=== PATIENT | male | born 1950 | race African-American/Black ===

== ENCOUNTER 2016-10-07 12:33 | Inpatient (IN) | payer BC, MEDICARE ==
[2016-10-07] MEDS ORDERED: TRAMADOL HCL 50 MG TABLET PO PRN (14:43)
[2016-10-07 14:49] LABS: ABSOLUTE LYMPHOCYTES (AUTO) 1.5 10^3/uL (0.5-4.7); ABSOLUTE MONOCYTES (AUTO) 0.9 10^3/uL (0.1-1.4); ABSOLUTE NEUT (AUTO) 15.3 10^3/uL (1.7-8.2); BASOPHILS % (AUTO) 0.1 % (0-2); HEMATOCRIT 43.7 % (37.9-51.0); HEMOGLOBIN 15.1 g/dL (13.5-17.0); HGB HCT DIFFERENCE 1.6; LYMPHOCYTES % (AUTO) 8.3 % (13-45); MEAN CORPUSCULAR HEMOGLOBIN 30.1 pg (27.0-33.4); MEAN CORPUSCULAR HGB CONC 34.6 g/dL (32.0-36.0); MEAN CORPUSCULAR VOLUME 87 fl (80-97); MONOCYTES % (AUTO) 5.3 % (3-13); RED BLOOD COUNT 5.02 10^6/uL (4.35-5.55); RED CELL DISTRIBUTION WIDTH 12.4 % (11.5-14.0); SEGMENTED NEUTROPHILS % (AUTO) 86.3 % (42-78); WHITE BLOOD COUNT 17.7 10^3/uL (4.0-10.5)
[2016-10-07 14:57] LABS: ALANINE AMINOTRANSFERASE 85 U/L (21-72); ALBUMIN 3.5 g/dL (3.5-5.0); ALKALINE PHOSPHATASE 67 U/L (38-126); ANION GAP 14 (5-19); ASPARTATE AMINO TRANSFERASE 55 U/L (17-59); BILIRUBIN,TOTAL 1.2 mg/dL (0.2-1.3); BLOOD UREA NITROGEN 22 mg/dL (7-20); CALCIUM 9.2 mg/dL (8.4-10.2); CARBON DIOXIDE 29 mmol/L (22-30); CHLORIDE 98 mmol/L (98-107); CREATININE RESULT 1.11 mg/dL (0.52-1.25); GLUCOSE 140 mg/dL (75-110); POTASSIUM 4.2 mmol/L (3.6-5.0); SODIUM 140.6 mmol/L (137-145); TOTAL PROTEIN 7.4 g/dL (6.3-8.2)
[2016-10-07] MEDS: NORMAL SALINE 1000 ML 1,000 ML IV PRN (15:00)
[2016-10-07] MEDS ORDERED: LEVOFLOXACIN 750 MG/D5W RTU 750 MG/150 ML RTUPB IV ONE (15:15)
--- NOTE | 2016-10-07 17:56 | PDOC H&P ---
History of Present Illness Admission Date/PCP: 10/07/16 12:33 [facility] Patient complains of: Cold symptoms with cough History of Present Illness: MICHAEL ÁLVAREZ is a 65 year old male presented to my office earlier today with complaint of cold symptoms, cough and loss of 12 lb weight in last 2 weeks. Patient admitted to associated fever, night sweats, nausea, diarrhea, abdominal pain and heartburns. There is associated chest pain with coughing which has been very productive of greenish phlegm. Patient admitted to associated headache and fatigue with poor appetite and oral intake. His initial evaluation in the office revealed hypoxemia on room air with oxygen saturation of 90%. His CBC did revealed associated leukocytosis with left shift and count over 16,000 necessitating recommendation of hospitalization for adequate evaluation and management. He denied any cigarette smoking, alcohol abuse or illicit drug usage. Past Medical History Cardiac Medical History: Reports: Hyperlipidema, Hypertension Pulmonary Medical History: Reports: None Denies: Asthma, Bronchitis, Chronic Obstructive Pulmonary Disease (COPD), Intubation, Pneumonia, Respiratory Failure, Sleep Apnea, Tuberculosis, Other EENT Medical History: Reports: None Denies: Cataracts, Eyes, Ears, Nose, Throat, Other Neurological Medical History: Reports: None Denies: Hemorrhagic CVA, Ischemic CVA, Migraine, Multiple Sclerosis, Seizures , Other Endocrine Medical History: Reports: None Denies: Diabetes Mellitus Type 1, Diabetes Mellitus Type 2, Gestational Diabetes, Hyperthyroidism, Hypothyroidism, Obesity, Other Renal/ Medical History: Denies: None, Chronic Kidney Disease, End Stage Renal Disease, Nephrolithiasis, Other GI Medical History: Denies: None, Cirrhosis, Crohn's Disease, Diverticulitis, Gastroesophageal Reflux Disease, Hepatitis, Hiatal Hernia, Peptic Ulcer Disease, Ulcerative Colitis, Other Musculoskeltal Medical History: Reports: Arthritis - with chronic pain syndrome Skin Medical History: Denies: None, Eczema, Psoriasis, Other Psychiatric Medical History: Denies: None, Alcohol Dependency, Attention Deficit Hyperactivity Disorder, Bipolar Disorder, Dementia, Depression, General Anxiety Disorder, Personality Disorder, Post Traumatic Stress Disorder, Schizoaffective Disorder, Substance Abuse, Tobacco Dependency, Other Traumatic Medical History: Denies: None, Gunshot Wound, Pneumothorax, Stab Wound, Traumatic Brain Injury , Other Hematology: Denies: None, Anemia, Hemophilia, Sickle Cell Disease, Bleeding Tendencies, Heparin Induced Thrombocytopenia, Neutropenia, Other Infectious Medical History: Reports: Other - Gastrointestinal Helicobacter pylori Past Surgical History Past Surgical History: Denies: None, Appendectomy, Cardiac Catheterization, Carotid Endarterectomy, Cholecystectomy, Colostomy, Coronary Artery Bypass Graft, Coronary Stent, Gastric Bypass Surgery, Herniorrhaphy, Hip Replacement, Ileostomy, Internal Defibrillator, Knee Replacement, Orthopedic Surgery, Pacemaker, Renal Transplant , Splenectomy, Thyroidectomy, Tonsillectomy, Valve Replacement, Vascular Surgery , Other Social History Smoking Status: Never Smoker Frequency of Alcohol Use: None Hx Recreational Drug Use: No Drugs: None Hx Prescription Drug Abuse: No Family History Parental Family History Reviewed: Yes Children Family History Reviewed: Yes Sibling(s) Family History Reviewed.: Yes Medication/Allergy Home Medications: Amlodipine Besylate 10 mg PO DAILY 10/07/16 Aspirin [Ecotrin 81 mg EC Tablet] 81 mg PO DAILY 10/07/16 Garlic [Garlic Oil] 1 each PO DAILY 10/07/16 Multivitamin [Multivitamins] 1 cap PO DAILY 10/07/16 Tramadol HCl [Ultram 50 mg Tablet] 50 mg PO TID PRN 10/07/16 Allergies/Adverse Reactions: No Known Allergies Allergy (Unverified 10/07/16 13:17) Review of Systems Constitutional: PRESENT: as per HPI Eyes: ABSENT: visual disturbances Ears: ABSENT: hearing changes Nose, Mouth, and Throat: PRESENT: headache(s). ABSENT: as per HPI, mouth pain, sore throat, vertigo, other Breasts: ABSENT: as per HPI, other Cardiovascular: PRESENT: as per HPI, chest pain - with coughing. ABSENT: dyspnea on exertion, edema, orthropnea, palpitations, other Respiratory: PRESENT: cough, sputum. ABSENT: as per HPI, dyspnea, hemoptysis, other Gastrointestinal: PRESENT: abdominal pain, diarrhea, heartburn. ABSENT: as per HPI, bloating, coffee ground emesis, constipation, dysphagia, hematemesis, hematochezia, melena, nausea, vomiting, other Genitourinary: ABSENT: as per HPI, difficulty urinating, dysuria, hematuria, nocturia, other Musculoskeletal: ABSENT: as per HPI, back pain, deformity, joint swelling, muscle weakness, other Integumentary: ABSENT: as per HPI, diaphoresis, erythema, lesions, pruritus, rash, wounds, other Neurological: PRESENT: weakness - more related to generalized fatigue. ABSENT: as per HPI, abnormal gait, abnormal movements, abnormal speech, confusion, convulsions, dizziness, focal weakness, frequent falls, lack of coordination, memory loss, numbness, paresthesias, restless legs, syncope, tingling, tremor(s) , vertigo, other Psychiatric: ABSENT: as per HPI, anxiety, depression, hallucinations, homidical ideation, suicidal ideation, other Endocrine: ABSENT: as per HPI, cold intolerance, flushing, heat intolerance, menstrual abnormalities, polydipsia, polyphagia, polyuria, other Hematologic/Lymphatic: ABSENT: as per HPI, easy bleeding, easy bruising, lymphadenopathy, other Physical Exam Vital Signs: Temp Pulse Resp BP Pulse Ox 102.0 F H 124 H 16 118/75 94 10/07/16 16:29 10/07/16 16:29 10/07/16 16:29 10/07/16 16:29 10/07/16 16:29 Intake & Output 10/06/16 10/07/16 10/08/16 06:59 06:59 06:59 Weight 85.2 kg Physical Exam: Acutely ill looking General appearance: PRESENT: cooperative, disheveled Head exam: PRESENT: atraumatic, normocephalic Eye exam: PRESENT: conjunctiva pink, EOMI, PERRLA. ABSENT: scleral icterus Ear exam: PRESENT: normal external ear exam Mouth exam: PRESENT: dry mucosa. ABSENT: laceration, moist, neck supple, tongue midline, other Teeth exam: ABSENT: dental caries, dental tenderness, edentulous, poor dentation , other Throat exam: PRESENT: post pharyngeal erythema. ABSENT: tonsillar erythema, tonsillar exudate, tonsillogmegaly, other Neck exam: PRESENT: full ROM. ABSENT: carotid bruit, JVD, lymphadenopathy, thyromegaly Respiratory exam: PRESENT: crackles - bibasilar region, decreased breath sounds - lung bases. ABSENT: accessory muscle use, chest wall tenderness, clear to auscultation serenity, prolonged expiratory phas, rales, retraction, rhonchi, stridor , symmetrical, tachypnea, unlabored, wheezes, other Cardiovascular exam: PRESENT: tachycardia. ABSENT: bradycardia, clicks, diastolic murmur, gallop, irregular rhythm, RRR, rubs, +S1, +S2, systolic murmur , other Pulses: PRESENT: normal dorsalis pedis pul, +2 pedal pulses bilateral Vascular exam: PRESENT: normal capillary refill GI/Abdominal exam: PRESENT: normal bowel sounds, soft. ABSENT: distended, guarding, mass, organolmegaly, rebound, tenderness Extremities exam: PRESENT: full ROM Musculoskeletal exam: PRESENT: ambulatory, deformity - due to arthritic changes , full ROM, normal inspection Neurological exam: PRESENT: alert, awake, oriented to person, oriented to place , oriented to time, oriented to situation, CN II-XII grossly intact. ABSENT: motor sensory deficit Psychiatric exam: PRESENT: appropriate affect, normal mood. ABSENT: homicidal ideation, suicidal ideation Skin exam: PRESENT: dry, intact, warm. ABSENT: cyanosis, rash Results Laboratory Results: 10/07/16 14:28 10/07/16 14:28 10/07/16 10/07/16 14:28 14:28 WBC 17.7 H RBC 5.02 Hgb 15.1 Hct 43.7 MCV 87 MCH 30.1 MCHC 34.6 RDW 12.4 Plt Count 175 Seg Neutrophils % 86.3 H Lymphocytes % 8.3 L Monocytes % 5.3 Eosinophils % 0.0 Basophils % 0.1 Absolute Neutrophils 15.3 H Absolute Lymphocytes 1.5 Absolute Monocytes 0.9 Absolute Eosinophils 0.0 Absolute Basophils 0.0 Sodium 140.6 Potassium 4.2 Chloride 98 Carbon Dioxide 29 Anion Gap 14 BUN 22 H Creatinine 1.11 Est GFR ( Amer) > 60 Est GFR (Non-Af Amer) > 60 Glucose 140 H Calcium 9.2 Total Bilirubin 1.2 AST 55 ALT 85 H Alkaline Phosphatase 67 Total Protein 7.4 Albumin 3.5 Impressions: Chest X-Ray 10/07/16 00:00 IMPRESSION: Left basilar airspace disease, worrisome for early or developing pneumonia Assessment & Plan - Diagnosis (1) Left lower lobe pneumonia Qualifiers: Pneumonia type: due to unspecified organism Qualified Code(s): J18.1 - Lobar pneumonia, unspecified organism Is this a current diagnosis for this admission?: YesPlan: Obtain blood culture x 2 sets, chest X ray, sputum gram stain and culture. Start on IV Levofloxacin and Cefepime coverage. Start on IV normal saline infusion. (2) Hypertension Is this a current diagnosis for this admission?: Yes (3) Hyperlipidemia Qualifiers: Hyperlipidemia type: pure hypercholesterolemia Qualified Code(s): E78.00 - Pure hypercholesterolemia, unspecified; E78.0 - Pure hypercholesterolemia Is this a current diagnosis for this admission?: Yes (4) Osteoarthritis of multiple joints Qualifiers: Osteoarthritis type: primary Qualified Code(s): M15.0 - Primary generalized (osteo)arthritis Is this a current diagnosis for this admission?: Yes (5) Allergic rhinitis due to allergen Qualifiers: Allergic rhinitis seasonality: seasonal Allergic rhinitis trigger: unspecified Qualified Code(s): J30.2 - Other seasonal allergic rhinitis Is this a current diagnosis for this admission?: Yes (6) Erectile dysfunction Qualifiers: Erectile dysfunction type: unspecified Qualified Code(s): N52.9 - Male erectile dysfunction, unspecified Is this a current diagnosis for this admission?: Yes - Time Time Spent: 50 to 70 Minutes Medications reviewed and adjusted accordingly: Yes Anticipated discharge: Home Within: Other - Inpatient Certification Based on my medical assessment, after consideration of the patient's comorbidities, presenting symptoms, or acuity I expect that the services needed warrant INPATIENT care.: Yes I certify that my determination is in accordance with my understanding of Medicare's requirements for reasonable and necessary INPATIENT services [42 CFR 412.3e].: Yes Medical Necessity: Significant Comorbidiites Make Outpatient Treatment Too Risky , Need For IV Fluids, Need for IV Antibiotics, Risk of Complication if Not Cared For in Hospital Post Hospital Care: D/C [facility] [employer] Professional Documentation - Plan Summary Plan Summary: See admitting physician orders.
[2016-10-07] MEDS: ACETAMINOPHEN 325 MG TABLET PO PRN (17:58)
[2016-10-07] MEDS: CEFEPIME HCL 2 GM in DEXTROSE 5%-WATER 50 ML IV SCH (17:59)
[2016-10-07 20:30] LABS: APPEARANCE,URINE SLIGHTLY-CLOUDY; BILIRUBIN,URINE NEGATIVE (NEGATIVE); GLUCOSE, URINE NEGATIVE (NEGATIVE); KETONES,URINE 20 mg/dL (NEGATIVE); LEUKOCYTE ESTERASE,URINE NEGATIVE (NEGATIVE); NITRITE,URINE NEGATIVE (NEGATIVE); PROTEIN,URINE 30 mg/dL (NEGATIVE); URINE SPECIFIC GRAVITY 1.029; UROBILINOGEN,URINE NEGATIVE mg/dL (<2.0)
[2016-10-08] MEDS: LANSOPRAZOLE 30 MG TAB.RAP.DR PO SCH (05:50)
[2016-10-08] MEDS: CEFEPIME HCL 2 GM in DEXTROSE 5%-WATER 50 ML IV SCH ×2 (05:55→17:59)
[2016-10-08] MEDS: ENOXAPARIN SODIUM INJ 40 MG/0.4 ML DISP.SYRIN SUBCUT SCH (08:44)
[2016-10-08] MEDS ORDERED: AMLODIPINE BESYLATE 10 MG TABLET PO SCH (10:00)
[2016-10-08] MEDS: AMLODIPINE BESYLATE 10 MG TABLET PO SCH (10:20)
[2016-10-08] MEDS: MULTIVITAMIN TABLET PO SCH (10:21)
[2016-10-08] MEDS: ASPIRIN 81 MG TABLET, ENT COATED PO SCH (10:21)
[2016-10-08] MEDS: NORMAL SALINE 1000 ML 1,000 ML IV PRN (14:04)
[2016-10-08] MEDS: LEVOFLOXACIN 750 MG/D5W RTU 750 MG/150 ML RTUPB IV SCH (17:58)
--- NOTE | 2016-10-08 18:47 | PDOC PROGRESS REPORT ---
Subjective Progress Note for:: 10/08/16 Subjective:: Patient was seen by the bedside, he was admitted yesterday because of pneumonia , and he is on IV antibiotic, he developed paroxysmal atrial fibrillation with ventricular rate 106. Physical Exam Vital Signs: Temp Pulse Resp BP Pulse Ox 99.8 F 108 H 18 107/67 96 10/08/16 15:40 10/08/16 15:40 10/08/16 15:40 10/08/16 15:40 10/08/16 15:40 Intake & Output 10/07/16 10/08/16 10/09/16 06:59 06:59 06:59 Intake Total 1134 Balance 1134 Weight 85.2 kg General appearance: PRESENT: no acute distress Eye exam: PRESENT: PERRLA Respiratory exam: PRESENT: rhonchi Cardiovascular exam: PRESENT: +S1, +S2 GI/Abdominal exam: PRESENT: soft Results Laboratory Results: 10/07/16 14:28 10/07/16 14:28 10/07/16 20:00 Urine Color LISA Urine Appearance SLIGHTLY-CLOUDY Urine pH 5.0 Ur Specific [place] 1.029 Urine Protein 30 H Urine Glucose (UA) NEGATIVE Urine Ketones 20 H Urine Blood NEGATIVE Urine Nitrite NEGATIVE Ur Leukocyte Esterase NEGATIVE Urine WBC (Auto) 2 Urine RBC (Auto) 1 Impressions: Chest X-Ray 10/07/16 00:00 IMPRESSION: Left basilar airspace disease, worrisome for early or developing pneumonia Assessment & Plan - Diagnosis (1) Left lower lobe pneumonia Qualifiers: Pneumonia type: due to unspecified organism Qualified Code(s): J18.1 - Lobar pneumonia, unspecified organism Is this a current diagnosis for this admission?: YesPlan: Continue IV antibiotic (2) Paroxysmal atrial fibrillation Is this a current diagnosis for this admission?: YesPlan: ABG be ordered, the atrial fibrillation could be related to the pneumonia. 2-D echo will be ordered as well. The ventricular rate is not that high at this point, I would not treat with beta adam/CCB to control heart rate (3) Hypertension Qualifiers: Hypertension type: essential hypertension Qualified Code(s): I10 - Essential (primary) hypertension Is this a current diagnosis for this admission?: Yes
[2016-10-08] MEDS: ACETAMINOPHEN 325 MG TABLET PO PRN (20:01)
[2016-10-08 20:03] LABS: ARTERIAL BLOOD O2 SATURATION 94.8 % (94-98)
[2016-10-09] MEDS: CEFEPIME HCL 2 GM in DEXTROSE 5%-WATER 50 ML IV SCH ×2 (06:13→17:42)
[2016-10-09] MEDS: LANSOPRAZOLE 30 MG TAB.RAP.DR PO SCH (06:13)
--- NOTE | 2016-10-09 08:24 | EKG REPORT ---
SEVERITY:- ABNORMAL ECG - ATRIAL FIBRILLATION, V-RATE 82-149 BORDERLINE LEFT AXIS DEVIATION BORDERLINE T ABNORMALITIES, INFERIOR LEADS : Confirmed by: Irlanda Koehler 09-Oct-2016 08:23:29
[2016-10-09] MEDS: MULTIVITAMIN TABLET PO SCH (09:47)
[2016-10-09] MEDS: ASPIRIN 81 MG TABLET, ENT COATED PO SCH (09:47)
[2016-10-09] MEDS: ACETAMINOPHEN 325 MG TABLET PO PRN ×2 (09:47→20:16)
[2016-10-09] MEDS: AMLODIPINE BESYLATE 10 MG TABLET PO SCH (09:47)
[2016-10-09] MEDS: ENOXAPARIN SODIUM INJ 40 MG/0.4 ML DISP.SYRIN SUBCUT SCH (09:48)
[2016-10-09] MEDS: NORMAL SALINE 1000 ML 1,000 ML IV PRN (12:58)
[2016-10-09 15:36] LABS: ABSOLUTE EOSINOPHILS # (AUTO) 0.1 10^3/uL (0.0-0.6); ABSOLUTE LYMPHOCYTES (AUTO) 1.4 10^3/uL (0.5-4.7); ABSOLUTE MONOCYTES (AUTO) 0.8 10^3/uL (0.1-1.4); ABSOLUTE NEUT (AUTO) 6.5 10^3/uL (1.7-8.2); BASOPHILS % (AUTO) 0.3 % (0-2); EOSINOPHILS % (AUTO) 0.8 % (0-6); HEMATOCRIT 37.6 % (37.9-51.0); HGB HCT DIFFERENCE 1.4; LYMPHOCYTES % (AUTO) 15.7 % (13-45); MEAN CORPUSCULAR HEMOGLOBIN 30.6 pg (27.0-33.4); MEAN CORPUSCULAR HGB CONC 34.6 g/dL (32.0-36.0); MEAN CORPUSCULAR VOLUME 89 fl (80-97); MONOCYTES % (AUTO) 9.6 % (3-13); RED BLOOD COUNT 4.25 10^6/uL (4.35-5.55); RED CELL DISTRIBUTION WIDTH 12.2 % (11.5-14.0); SEGMENTED NEUTROPHILS % (AUTO) 73.6 % (42-78); WHITE BLOOD COUNT 8.8 10^3/uL (4.0-10.5)
[2016-10-09 15:45] LABS: ALANINE AMINOTRANSFERASE 67 U/L (21-72); ALBUMIN 3.2 g/dL (3.5-5.0); ALKALINE PHOSPHATASE 63 U/L (38-126); ANION GAP 11 (5-19); ASPARTATE AMINO TRANSFERASE 42 U/L (17-59); BILIRUBIN,TOTAL 0.8 mg/dL (0.2-1.3); BLOOD UREA NITROGEN 12 mg/dL (7-20); CALCIUM 8.8 mg/dL (8.4-10.2); CARBON DIOXIDE 27 mmol/L (22-30); CHLORIDE 102 mmol/L (98-107); CREATININE RESULT 0.83 mg/dL (0.52-1.25); GLUCOSE 126 mg/dL (75-110); POTASSIUM 3.7 mmol/L (3.6-5.0); SODIUM 140.4 mmol/L (137-145); TOTAL PROTEIN 6.3 g/dL (6.3-8.2)
--- NOTE | 2016-10-09 15:49 | PDOC PROGRESS REPORT ---
Subjective Progress Note for:: 10/09/16 Subjective:: Patient was seen by the bedside, he seems to be improving with treatment. Yesterday he had episode of paroxysmal atrial fibrillation, probably related to the pneumonia, ABG was done on room air. He showed slight hypoxemia that is mild respiratory alkalosis in response to the pneumonia Physical Exam Vital Signs: Temp Pulse Resp BP Pulse Ox 98.5 F 104 H 18 117/76 100 10/09/16 12:49 10/09/16 12:49 10/09/16 12:49 10/09/16 12:49 10/09/16 12:49 Intake & Output 10/08/16 10/09/16 10/10/16 06:59 06:59 06:59 Intake Total 1134 3440 Output Total 150 Balance 1134 3290 Weight 85.2 kg 87.3 kg General appearance: PRESENT: no acute distress Eye exam: PRESENT: PERRLA Respiratory exam: PRESENT: clear to auscultation serenity Cardiovascular exam: PRESENT: +S1, +S2 GI/Abdominal exam: PRESENT: soft Neurological exam: PRESENT: alert, CN II-XII grossly intact Results Laboratory Results: 10/09/16 15:15 10/08/16 10/09/16 18:52 15:15 WBC 8.8 RBC 4.25 L Hgb 13.0 L D Hct 37.6 L MCV 89 MCH 30.6 MCHC 34.6 RDW 12.2 Plt Count 195 Seg Neutrophils % 73.6 Lymphocytes % 15.7 Monocytes % 9.6 Eosinophils % 0.8 Basophils % 0.3 Absolute Neutrophils 6.5 Absolute Lymphocytes 1.4 Absolute Monocytes 0.8 Absolute Eosinophils 0.1 Absolute Basophils 0.0 Carbonic Acid 1.03 L HCO3/H2CO3 Ratio 24:1 ABG pH 7.48 H ABG pCO2 34.1 L ABG pO2 67.5 L ABG HCO3 25.0 ABG O2 Saturation 94.8 ABG Base Excess 2.0 FiO2 ROOM AIR 10/07/16 20:00 Clean Catch Midstream Urine Culture - Final 3,000 col/ml Impressions: Chest X-Ray 10/07/16 00:00 IMPRESSION: Left basilar airspace disease, worrisome for early or developing pneumonia Assessment & Plan - Diagnosis (1) Left lower lobe pneumonia Qualifiers: Pneumonia type: due to unspecified organism Qualified Code(s): J18.1 - Lobar pneumonia, unspecified organism Is this a current diagnosis for this admission?: YesPlan: Patient will continue present IV antibiotic (2) Paroxysmal atrial fibrillation Is this a current diagnosis for this admission?: YesPlan: He had paroxysmal atrial fibrillation,2D Echocardiogram ordered (3) Hypertension Qualifiers: Hypertension type: essential hypertension Qualified Code(s): I10 - Essential (primary) hypertension Is this a current diagnosis for this admission?: Yes
[2016-10-09] MEDS: LEVOFLOXACIN 750 MG/D5W RTU 750 MG/150 ML RTUPB IV SCH (17:41)
[2016-10-10] MEDS: LANSOPRAZOLE 30 MG TAB.RAP.DR PO SCH (06:37)
[2016-10-10] MEDS: CEFEPIME HCL 2 GM in DEXTROSE 5%-WATER 50 ML IV SCH ×2 (06:37→17:30)
--- NOTE | 2016-10-10 08:52 | PDOC PROGRESS REPORT ---
Subjective Progress Note for:: 10/10/16 Subjective:: Doing much better. No significant fever over last 24 hours. Denied any difficulty with breathing. Improved productive cough. No chest pain. No nausea or vomiting. Tolerating oral feeding. Physical Exam Vital Signs: Temp Pulse Resp BP Pulse Ox 98.8 F 89 20 131/76 H 99 10/10/16 07:43 10/10/16 07:43 10/10/16 07:43 10/10/16 07:43 10/10/16 07:43 Intake & Output 10/09/16 10/10/16 10/11/16 06:59 06:59 06:59 Intake Total 3440 1660 Output Total 150 400 Balance 3290 1260 Weight 87.3 kg 87 kg General appearance: PRESENT: no acute distress, well-developed, well-nourished Head exam: PRESENT: atraumatic, normocephalic Eye exam: PRESENT: conjunctiva pink, EOMI, PERRLA. ABSENT: scleral icterus Ear exam: PRESENT: normal external ear exam Mouth exam: PRESENT: moist, tongue midline Teeth exam: PRESENT: poor dentation Throat exam: ABSENT: post pharyngeal erythema, tonsillar erythema, tonsillar exudate, tonsillogmegaly, other Neck exam: PRESENT: full ROM. ABSENT: carotid bruit, JVD, lymphadenopathy, thyromegaly Respiratory exam: ABSENT: accessory muscle use, chest wall tenderness, clear to auscultation serenity, crackles, decreased breath sounds, prolonged expiratory phas, rales, retraction, rhonchi, stridor, symmetrical, tachypnea, unlabored, wheezes , other Cardiovascular exam: PRESENT: RRR. ABSENT: diastolic murmur, rubs, systolic murmur GI/Abdominal exam: PRESENT: normal bowel sounds, soft. ABSENT: distended, guarding, mass, organolmegaly, rebound, tenderness Extremities exam: PRESENT: full ROM Musculoskeletal exam: PRESENT: ambulatory, full ROM, normal inspection Neurological exam: PRESENT: alert, awake, oriented to person, oriented to place , oriented to time, oriented to situation, CN II-XII grossly intact. ABSENT: motor sensory deficit Psychiatric exam: PRESENT: appropriate affect, normal mood. ABSENT: homicidal ideation, suicidal ideation Skin exam: PRESENT: dry, intact, warm. ABSENT: cyanosis, rash Results Laboratory Results: 10/09/16 15:15 10/09/16 15:15 10/09/16 10/09/16 15:15 15:15 WBC 8.8 RBC 4.25 L Hgb 13.0 L D Hct 37.6 L MCV 89 MCH 30.6 MCHC 34.6 RDW 12.2 Plt Count 195 Seg Neutrophils % 73.6 Lymphocytes % 15.7 Monocytes % 9.6 Eosinophils % 0.8 Basophils % 0.3 Absolute Neutrophils 6.5 Absolute Lymphocytes 1.4 Absolute Monocytes 0.8 Absolute Eosinophils 0.1 Absolute Basophils 0.0 Sodium 140.4 Potassium 3.7 Chloride 102 Carbon Dioxide 27 Anion Gap 11 BUN 12 Creatinine 0.83 Est GFR ( Amer) > 60 Est GFR (Non-Af Amer) > 60 Glucose 126 H Calcium 8.8 Total Bilirubin 0.8 AST 42 ALT 67 Alkaline Phosphatase 63 Total Protein 6.3 Albumin 3.2 L 10/07/16 20:00 Clean Catch Midstream Urine Culture - Final 3,000 col/ml Impressions: Chest X-Ray 10/07/16 00:00 IMPRESSION: Left basilar airspace disease, worrisome for early or developing pneumonia Assessment & Plan - Diagnosis (1) Left lower lobe pneumonia Qualifiers: Pneumonia type: due to unspecified organism Qualified Code(s): J18.1 - Lobar pneumonia, unspecified organism Is this a current diagnosis for this admission?: YesPlan: Maintain on on IV Levofloxacin and Cefepime coverage pending blood and sputum culture findings. Maintain on supportive IV normal saline infusion. (2) Hypertension Qualifiers: Hypertension type: essential hypertension Qualified Code(s): I10 - Essential (primary) hypertension Is this a current diagnosis for this admission?: Yes (3) Hyperlipidemia Qualifiers: Hyperlipidemia type: pure hypercholesterolemia Qualified Code(s): E78.00 - Pure hypercholesterolemia, unspecified; E78.0 - Pure hypercholesterolemia Is this a current diagnosis for this admission?: Yes (4) Osteoarthritis of multiple joints Qualifiers: Osteoarthritis type: primary Qualified Code(s): M15.0 - Primary generalized (osteo)arthritis Is this a current diagnosis for this admission?: Yes (5) Allergic rhinitis due to allergen Qualifiers: Allergic rhinitis seasonality: seasonal Allergic rhinitis trigger: unspecified Qualified Code(s): J30.2 - Other seasonal allergic rhinitis Is this a current diagnosis for this admission?: Yes (6) Erectile dysfunction Qualifiers: Erectile dysfunction type: unspecified Qualified Code(s): N52.9 - Male erectile dysfunction, unspecified Is this a current diagnosis for this admission?: Yes - Time Time Spent with patient: 25-34 minutes Anticipated discharge: Home - Inpatient Certification Based on my medical assessment, after consideration of the patient's comorbidities, presenting symptoms, or acuity I expect that the services needed warrant INPATIENT care.: Yes I certify that my determination is in accordance with my understanding of Medicare's requirements for reasonable and necessary INPATIENT services [42 CFR 412.3e].: Yes Medical Necessity: Need For IV Fluids, Need for IV Antibiotics, Risk of Complication if Not Cared For in Hospital - Plan Summary Plan Summary: See attending physician orders.
[2016-10-10] MEDS: MULTIVITAMIN TABLET PO SCH (09:23)
[2016-10-10] MEDS: ASPIRIN 81 MG TABLET, ENT COATED PO SCH (09:23)
[2016-10-10] MEDS: AMLODIPINE BESYLATE 10 MG TABLET PO SCH (09:23)
[2016-10-10] MEDS: ENOXAPARIN SODIUM INJ 40 MG/0.4 ML DISP.SYRIN SUBCUT SCH (09:23)
[2016-10-10] MEDS: NORMAL SALINE 1000 ML 1,000 ML IV PRN ×2 (10:11→21:39)
[2016-10-10] MEDS ORDERED: LEVOFLOXACIN 750 MG TABLET PO SCH (18:00)
[2016-10-11] MEDS: NORMAL SALINE 1000 ML 1,000 ML IV PRN (05:12)
[2016-10-11] MEDS: CEFEPIME HCL 2 GM in DEXTROSE 5%-WATER 50 ML IV SCH (05:14)
[2016-10-11] MEDS: LANSOPRAZOLE 30 MG TAB.RAP.DR PO SCH (05:14)
--- NOTE | 2016-10-11 08:47 | PDOC DISCHARGE SUMMARY ---
General - Admit/Disc Date/PCP Admission Date/Primary Care Provider: 10/07/16 12:33 JOSE KRIS Discharge Date: 10/11/16 - Discharge Diagnosis (1) Left lower lobe pneumonia Is this a current diagnosis for this admission?: Yes (2) Hypertension Is this a current diagnosis for this admission?: Yes (3) Hyperlipidemia Is this a current diagnosis for this admission?: Yes (4) Osteoarthritis of multiple joints Is this a current diagnosis for this admission?: Yes (5) Allergic rhinitis due to allergen Is this a current diagnosis for this admission?: Yes (6) Erectile dysfunction Is this a current diagnosis for this admission?: Yes (7) Paroxysmal atrial fibrillation Is this a current diagnosis for this admission?: Yes - Additional Information Discharge Diet: Cardiac Discharge Activity: Activity As Tolerated Home Medications: Amlodipine Besylate 10 mg PO DAILY 10/07/16 Aspirin [Ecotrin 81 mg EC Tablet] 81 mg PO DAILY 10/07/16 Garlic [Garlic Oil] 1 each PO DAILY 10/07/16 Multivitamin [Multivitamins] 1 cap PO DAILY 10/07/16 Tramadol HCl [Ultram 50 mg Tablet] 50 mg PO TID PRN 10/07/16 Levofloxacin [Levaquin 500 mg Tablet] 500 mg PO DAILY #5 tablet 10/11/16 History of Present Illness History of Present Illness: MICHAEL ÁLVAREZ is a 65 year old male presented to my office earlier today with complaint of cold symptoms, cough and loss of 12 lb weight in last 2 weeks. Patient admitted to associated fever, night sweats, nausea, diarrhea, abdominal pain and heartburns. There is associated chest pain with coughing which has been very productive of greenish phlegm. Patient admitted to associated headache and fatigue with poor appetite and oral intake. His initial evaluation in the office revealed hypoxemia on room air with oxygen saturation of 90%. His CBC did revealed associated leukocytosis with left shift and count over 16,000 necessitating recommendation of hospitalization for adequate evaluation and management. He denied any cigarette smoking, alcohol abuse or illicit drug usage. Hospital Course Hospital Course: Patient responded to IV Cefepime and Levaquin coverage with resolution of leukocytosis and fever. Sputum culture did grew streptococcus pneumoniae. His hospitalization was eventful for episode of paroxysmal atrial fibrillation. There was reported hypoxemia and respiratory alkalosis that eventually resolved. His official echocardiogram report is not available at the time of discharge. Patient has remain afebrile over last 48 hours and tolerating oral feeding and antibiotic. He will be discharge home on 5 days of oral Levofloxacin 500 mg daily for 5 days. Physical Exam Vital Signs: Temp Pulse Resp BP Pulse Ox 98.4 F 82 16 126/77 H 99 10/11/16 03:52 10/11/16 07:00 10/11/16 03:52 10/11/16 03:52 10/11/16 03:52 Intake & Output 10/10/16 10/11/16 10/12/16 06:59 06:59 06:59 Intake Total 1660 3277 Output Total 400 Balance 1260 3277 Weight 87 kg 88.9 kg General appearance: PRESENT: no acute distress, well-developed, well-nourished Head exam: PRESENT: atraumatic, normocephalic Eye exam: PRESENT: conjunctiva pink, EOMI, PERRLA. ABSENT: scleral icterus Mouth exam: PRESENT: moist, tongue midline Teeth exam: PRESENT: poor dentation Throat exam: ABSENT: post pharyngeal erythema, tonsillar erythema, tonsillar exudate, tonsillogmegaly, other Neck exam: ABSENT: carotid bruit, full ROM, JVD, lymphadenopathy, meningismus, tenderness, thyromegaly, tracheal deviation, tracheostomy, other Respiratory exam: ABSENT: accessory muscle use, chest wall tenderness, clear to auscultation serenity, crackles, decreased breath sounds, prolonged expiratory phas, rales, retraction, rhonchi, stridor, symmetrical, tachypnea, unlabored, wheezes , other Cardiovascular exam: PRESENT: RRR. ABSENT: diastolic murmur, rubs, systolic murmur Pulses: PRESENT: normal dorsalis pedis pul, +2 pedal pulses bilateral Vascular exam: PRESENT: normal capillary refill GI/Abdominal exam: PRESENT: normal bowel sounds, soft. ABSENT: distended, guarding, mass, organolmegaly, rebound, tenderness Extremities exam: PRESENT: full ROM Musculoskeletal exam: PRESENT: ambulatory, deformity - of arthritis involving multiple joints., full ROM, normal inspection Neurological exam: PRESENT: alert, awake, oriented to person, oriented to place , oriented to time, oriented to situation, CN II-XII grossly intact. ABSENT: motor sensory deficit Psychiatric exam: PRESENT: appropriate affect, normal mood. ABSENT: homicidal ideation, suicidal ideation Skin exam: PRESENT: dry, intact, warm. ABSENT: cyanosis, rash Results Laboratory Results: 10/09/16 15:15 10/09/16 15:15 Impressions: Chest X-Ray 10/07/16 00:00 IMPRESSION: Left basilar airspace disease, worrisome for early or developing pneumonia Qualifiers PATEINT BEING DISCHARGED WITH ANY OF THE FOLLOWING DIAGNOSIS?: No Plan Discharge Plan: Discharge home today. Followup in office as noted. Off duty until 10/17/16. Time Spent: Less than 30 Minutes
--- NOTE | 2016-10-11 09:03 | XCELERA REPORT ---
[address] [address] Transthoracic Echocardiogram Report Name: MICHAEL ÁLVAREZ Age: 65 yrs Gender: Male : 1950 Patient Status: Inpatient Patient Location: 5\[id number]\537\S\A Study Date: 10/10/2016 01:07 PM Height: 73 in Weight: 192 lb BSA: 2.1 m2 Procedure: A two-dimensional transthoracic echocardiogram with color flow and Doppler was performed. The study was technically difficult with many images being suboptimal in quality. Reason For Study: paroxysmal atrial fibrillation History: paroxysmal atrial fibrillation. Ordering Physician: JOSE DANIEL IBANEZ Performed By: Jerald Almodovar Interpretation Summary The left ventricle is normal in size. There is normal left ventricular wall thickness. Left ventricular systolic function is normal. LV EF is > than 65% Doppler measurements suggest normal left ventricular diastolic function The left ventricular wall motion is normal. There is no thrombus. The right ventricle is normal in size and function. The left atrial size is normal. The interatrial septum is intact with no evidence for an atrial septal defect. There is no evidence of mitral valve prolapse. There is no mitral valve stenosis. There is no mitral regurgitation noted. There is no aortic valve stenosis There is no LVOT obstruction. No aortic regurgitation is present. There is no tricuspid stenosis. There is a trace amount of tricuspid regurgitation There is mild pulmonary hypertension by echo RVSP is 35 mm of Hg , with RA mean of 10. There is no pericardial effusion. MMode/2D Measurements \T\ Calculations RVDd: 2.2 cm LVIDd: 5.4 cm FS: 37.9 % Ao root diam: 3.4 cm IVSd: 1.0 cm LVIDs: 3.4 cm EDV(Teich): 143.6 ml LVPWd: 1.0 cm ESV(Teich): 46.6 ml Ao root area: 9.3 cm2 EF(Teich): 67.5 % LA dimension: 3.2 cm Doppler Measurements \T\ Calculations MV E max pio: MV P1/2t max pio: Ao V2 max: LV V1 max P.7 cm/sec 74.7 cm/sec 138.5 cm/sec 4.5 mmHg MV A max pio: MV P1/2t: 46.0 msec Ao max PG: LV V1 max: 60.0 cm/sec 7.7 mmHg 106.5 cm/sec MV E/A: 1.2 MVA(P1/2t): 4.8 cm2 MV dec slope: 475.7 cm/sec2 MV dec time: 0.16 sec PA V2 max: TR max pio: RAP systole: 79.0 cm/sec 251.1 cm/sec 10.0 mmHg PA max PG: TR max P.2 mmHg 2.5 mmHg RVSP(TR): 35.2 mmHg Left Ventricle The left ventricle is normal in size. There is normal left ventricular wall thickness. Left ventricular systolic function is normal. LV EF is > than 65%. Doppler measurements suggest normal left ventricular diastolic function. The left ventricular wall motion is normal. There is no thrombus. There is no ventricular septal defect visualized. Right Ventricle The right ventricle is normal in size and function. Atria The right atrium is normal. The left atrial size is normal. The interatrial septum is intact with no evidence for an atrial septal defect. Mitral Valve There is no evidence of mitral valve prolapse. There is no vegetation seen on the mitral valve. There is no mitral valve stenosis. There is no mitral regurgitation noted. Aortic Valve There is no aortic valvular vegetation. There is no aortic valve stenosis. There is no LVOT obstruction. No aortic regurgitation is present. Tricuspid Valve There is no tricuspid stenosis. There is a trace amount of tricuspid regurgitation. There is mild pulmonary hypertension by echo. RVSP is 35 mm of Hg , with RA mean of 10. Pulmonic Valve There is no pulmonic valvular stenosis. There is no pulmonic valvular regurgitation. Great Vessels The aortic root is normal size. Effusions There is no pericardial effusion. : JOSE DANIEL IBANEZ > Mayra Haynes
[2016-10-11 09:16] VITALS: BP 126/77
[2016-10-11] MEDS: ENOXAPARIN SODIUM INJ 40 MG/0.4 ML DISP.SYRIN SUBCUT SCH (10:13)
[2016-10-11] MEDS: ASPIRIN 81 MG TABLET, ENT COATED PO SCH (10:33)
[2016-10-11] MEDS: AMLODIPINE BESYLATE 10 MG TABLET PO SCH (10:33)
[2016-10-11] MEDS: MULTIVITAMIN TABLET PO SCH (10:33)
== END 2016-10-11 10:56 | disposition home or self-care (01) | DRG 194 ==
LOC: 5 12:33
PROVIDERS: ADMIT Internal Medicine Geriatric Medicine; ATTEND Internal Medicine Geriatric Medicine
PROC: 3E0234Z Introduction of Serum, Toxoid and Vaccine into Muscle, Percutaneous Approach (ICD-10-PCS; principal; 2016-10-11)
DX: J13 Pneumonia due to Streptococcus pneumoniae (principal); E87.3 Alkalosis; I10 Essential (primary) hypertension; E78.5 Hyperlipidemia, unspecified; I48.0 Paroxysmal atrial fibrillation; D72.829 Elevated white blood cell count, unspecified; R09.02 Hypoxemia; G89.4 Chronic pain syndrome; M19.91 Primary osteoarthritis, unspecified site; J30.2 Other seasonal allergic rhinitis; N52.9 Male erectile dysfunction, unspecified; M54.9 Dorsalgia, unspecified; Z23 Encounter for immunization; Z79.82 Long term (current) use of aspirin
CPT/HCPCS: 36415; 36600; 71020; 80053; 81001; 82803; 85025; 87040; 87070; 87077; 87086; 87186; 87205; 93005; 93010; 93306; J0692; J1650; J1956; J7030

== ENCOUNTER 2017-03-19 08:45 | Emergency (ER) | payer BC, MEDICARE ==
[2017-03-19] MEDS ORDERED: LIDOCAINE 5% (700 MG) TRANSDERMAL ADH..PATCH TP ONE (09:38)
[2017-03-19] MEDS ORDERED: TRAMADOL HCL 50 MG TABLET PO ONE (09:38)
--- NOTE | 2017-03-19 09:39 | ER Document Report ---
HPI - HPI Patient complains to provider of: darryl bryant pain Onset: Other - 2 days Onset/Duration: Persistent Quality of pain: Achy Pain Level: 5 Context: Patient presents complaining of right shoulder joint pain that is worse with range of motion. Patient denies any injury. Patient is right-hand dominant. Associated Symptoms: Other - shoulder pain Exacerbated by: Movement Relieved by: Denies Similar symptoms previously: No Recently seen / treated by doctor: No - ROS ROS below otherwise negative: Yes Systems Reviewed and Negative: Yes All other systems reviewed and negative - MUSCULOSKELETAL Musculoskeletal: REPORTS: Extremity pain - r shoulder - DERM Skin Color: Normal Skin Problems: None Past Medical History - General Information source: Patient - Social History Smoking Status: Never Smoker Frequency of alcohol use: None Drug Abuse: None Occupation: maintenance Lives with: Spouse/Significant other Family History: Reviewed & Not Pertinent Patient has suicidal ideation: No Patient has homicidal ideation: No - Past Medical History Cardiac Medical History: Reports: Hx Hypercholesterolemia, Hx Hypertension Pulmonary Medical History: Denies: Hx Asthma, Hx Bronchitis, Hx COPD, Hx Pneumonia, Hx Intubation, Hx Respiratory Failure, Hx Sleep Apnea, Hx Tuberculosis Neurological Medical History: Denies: Hx Migraine, Hx Seizures Endocrine Medical History: Denies: Hx Diabetes Mellitus Type 1, Hx Diabetes Mellitus Type 2, Hx Hyperthyroidism, Hx Hypothyroidism Renal/ Medical History: Denies: Hx End Stage Renal Disease, Hx Peritoneal Dialysis GI Medical History: Denies: Hx Cirrhosis, Hx Crohn's Disease, Hx Diverticulitis , Hx Gastroesophageal Reflux Disease, Hx Hepatitis, Hx Hiatal Hernia, Hx Ulcerative Colitis Musculoskeltal Medical History: Reports Hx Arthritis - with chronic pain syndrome Skin Medical History: Denies Hx Eczema, Denies Hx Psoriasis Psychiatric Medical History: Denies: Hx Attention Deficit Hyperactivity Disorder, Hx Bipolar Disorder, Hx Dementia, Hx Depression, Hx Personality Disorder, Hx Post Traumatic Stress Disorder, Hx Schizoaffective Disorder Traumatic Medical History: Denies: Hx Gunshot Wound, Hx Pneumothorax, Hx Traumatic Brain Injury Infectious Medical History: Denies: Hx Hepatitis Surgical Hx: Negative Past Surgical History: Denies: Hx Appendectomy, Hx Cardiac Catheterization, Hx Carotid Endarterectomy, Hx Cholecystectomy, Hx Colostomy, Hx Coronary Artery Bypass Graft, Hx Coronary Stent, Hx Gastric Bypass Surgery, Hx Herniorrhaphy, Hx Ileostomy, Hx Internal Defibrillator, Hx Orthopedic Surgery, Hx Pacemaker, Hx Tonsillectomy, Hx Valve Replacement, Hx Vascular Surgery, Other - Immunizations Hx Pneumococcal Vaccination: 07/02/15 Vertical Provider Document - CONSTITUTIONAL Agree With Documented VS: Yes Exam Limitations: No Limitations General Appearance: WD/WN, No Apparent Distress - INFECTION CONTROL TRAVEL OUTSIDE OF THE [place] IN LAST 30 DAYS: No - HEENT HEENT: Atraumatic, Normocephalic - NECK Neck: Normal Inspection, Supple - RESPIRATORY Respiratory: Breath Sounds Normal, No Respiratory Distress O2 Sat by Pulse Oximetry: 98 - CARDIOVASCULAR Cardiovascular: Regular Rate, Regular Rhythm, No Murmur Pulses: Normal: Radial - MUSCULOSKELETAL/EXTREMETIES Musculoskeletal/Extremeties: MAEW, Tender - Right posterior shoulder joint tenderness with range of motion, tenderness increases with extension and abduction, no deformity, no dislocation. - NEURO Level of Consciousness: Awake, Alert, Appropriate Motor/Sensory: No Motor Deficit - DERM Integumentary: Warm, Dry, No Rash Course - Re-evaluation Re-evalutation: 03/19/17 09:39 The patient has been informed that they may have pre-hypertension or hypertension based on a blood pressure reading in the emergency department. I recommend that patient call the primary care provider listed on their discharge instructions or a physician of their choice by this week to arrange follow-up for further evaluation of possible pre-hypertension her hypertension. - Vital Signs Vital signs: Temp Pulse Resp BP Pulse Ox 98.1 F 96 16 156/87 H 98 03/19/17 08:49 03/19/17 08:49 03/19/17 08:49 03/19/17 08:49 03/19/17 08:49 - Diagnostic Test Radiology reviewed: Reports reviewed Discharge - Discharge Clinical Impression: Hx of essential hypertension, Pain, joint, shoulder, right Osteoarthritis Qualifiers: Osteoarthritis location: shoulder Osteoarthritis type: unspecified Laterality: right Qualified Code(s): M19.011 - Primary osteoarthritis, right shoulder Condition: Stable Disposition: HOME, SELF-CARE Instructions: Arthritis ([facility]), Ultram ([facility]) Additional Instructions: Return immediately for any new or worsening symptoms Followup with your primary care provider, call tomorrow to make a followup appointment Your blood pressure was mildly elevated today, recheck with your primary doctor to have this reevaluated. Continue to take your tramadol that you have at home as prescribed for pain relief. He may also take Tylenol [id number] to help with your pain symptoms. You may use [id number] topical lidocaine patch such as salon pas as directed Forms: Elevated Blood Pressure, Return to Work Referrals: JOSE PONCE MD [Primary Care Provider] - Follow up tomorrow [facility] [Provider Group] - Follow up as needed
--- NOTE | 2017-03-19 10:15 | RADIOLOGY REPORT (SQ) ---
EXAM DESCRIPTION: SHOULDER RIGHT 2 OR MORE VIEWS COMPLETED DATE/TIME: 03/19/2017 9:56 am REASON FOR STUDY: right shoulder joint pain COMPARISON: None. NUMBER OF VIEWS: Three views. TECHNIQUE: Internal rotation, external rotation, and Y view images acquired of the right shoulder. LIMITATIONS: None. FINDINGS: MINERALIZATION: Normal. BONES: Severe osteoarthritis of the glenohumeral joint. Large medial humeral osteophyte and likely l oose bodies in the joint. JOINTS: No dislocation. VISUALIZED LUNGS AND RIBS: No pneumothorax. No rib fracture. SOFT TISSUES: No radiopaque foreign body. OTHER: No other significant finding. IMPRESSION: Severe osteoarthritis of the glenohumeral joint with likely loose bodies. TECHNICAL DOCUMENTATION: JOB ID: [id number] [employer]- All Rights Reserved
[2017-03-19 10:40] VITALS: BP 139/88
== END 2017-03-19 11:02 | disposition home or self-care (01) ==
LOC: ER 08:45
DX: M19.011 Primary osteoarthritis, right shoulder (principal); M25.511 Pain in right shoulder; I10 Essential (primary) hypertension
CPT/HCPCS: 99283

== ENCOUNTER → 2018-01-06 | Outpatient (CLI) | payer BC, MEDICARE ==
[2018-01-06 08:14] LABS: CHOLESTEROL 180.66 mg/dL (0-200); TRIGLYCERIDES 65 mg/dL (<150)
[2018-01-06 08:28] LABS: DIRECT LDL 113 mg/dL (<100)
== END ==
LOC: LAB 07:40
PROVIDERS: ATTEND Internal Medicine Geriatric Medicine
DX: E78.00 Pure hypercholesterolemia, unspecified (principal); R97.20 Elevated prostate specific antigen [PSA]
CPT/HCPCS: 36415; 80061; 84153

== ENCOUNTER 2018-12-23 22:27 | Emergency (ER) | payer BC, MEDICARE ==
[2018-12-23] MEDS ORDERED: HYDROCODONE/ACETAMINOPHEN 5-325 MG TABLET PO ONE (23:56)
--- NOTE | 2018-12-24 00:58 | RADIOLOGY REPORT (SQ) ---
EXAM DESCRIPTION: CT CERVICAL SPINE WITHOUT IV CONTRAST COMPLETED DATE/TME: 12/23/2018 23:40 CLINICAL HISTORY: 68 years, Male, neck and back pain COMPARISON: None. TECHNIQUE: 268 Images stored on PACS. All CT scanners at this facility use dose modulation, iterative reconstruction, and/or weight based dosing when appropriate to reduce radiation dose to as low as reasonably achievable (ALARA). [facility]: Dose Right [facility]: CareDose [facility]: Dose Right [facility]: Teradose 4D [facility]: [employer] LIMITATIONS: None. FINDINGS: Vertebral body height and alignment is preserved. Degenerative changes throughout the cervical spine. Atlantoaxial space is preserved. Lateral masses are not displaced. Chronic soft tissues are unremarkable IMPRESSION: No acute C-spine abnormality TECHNICAL DOCUMENTATION: Quality ID # [id number]: Final reports with documentation of one or more dose reduction techniques (e.g., Automated exposure control, adjustment of the mA and/or kV according to patient size, use of iterative reconstruction technique) copyright 2010 [email or web address]- All Rights Reserved
--- NOTE | 2018-12-24 01:01 | RADIOLOGY REPORT (SQ) ---
EXAM DESCRIPTION: CT THORACIC SPINE WITHOUT IV CONTRAST COMPLETED DATE/TME: 12/23/2018 23:40 CLINICAL HISTORY: 68 years, Male, neck and back pain COMPARISON: None TECHNIQUE: Multiplanar imaging through the thoracic spine without contrast. This exam was performed according to our departmental dose-optimization program, which includes automated exposure control, adjustment of the mA and/or kV according to patient size and/or use of iterative reconstruction technique. FINDINGS: No fracture. No subluxation. Multilevel marginal osteophytes throughout the thoracic spine. Mild disc space narrowing in the mid thoracic spine. Soft tissues are unremarkable. Hypoventilatory changes in the lung bases. IMPRESSION: No acute abnormality. Multilevel degenerative disc changes.
--- NOTE | 2018-12-24 02:09 | ER Document Report ---
ED General - General Chief Complaint: Back Pain Stated Complaint: BACK AND NECK PAIN Time Seen by Provider: 12/23/18 23:31 Primary Care Provider: JOSE PONCE MD [Primary Care Provider] - Follow up as needed Notes: Patient is a 68-year-old male who presents with complaint of pain at the base of his neck. He said in the midline. Is not worse with movement. There is no weakness or numbness into the upper extremities. No fevers. He is on blood thinners. No recent trauma or injuries. No weakness or numbness into the legs. Patient says symptoms started a few days ago. He has been taking his tramadol at home which has not been helping. He has never had anything like this before. TRAVEL OUTSIDE OF THE [place] IN LAST 30 DAYS: No - Related Data Allergies/Adverse Reactions: No Known Allergies Allergy (Unverified 10/07/16 23:44) Past Medical History - Social History Smoking Status: Unknown if Ever Smoked Frequency of alcohol use: None Drug Abuse: None Family History: Reviewed & Not Pertinent Patient has suicidal ideation: No Patient has homicidal ideation: No - Past Medical History Cardiac Medical History: Reports: Hx Hypercholesterolemia, Hx Hypertension Pulmonary Medical History: Denies: Hx Asthma, Hx Bronchitis, Hx COPD, Hx Pneumonia, Hx Intubation, Hx Respiratory Failure, Hx Sleep Apnea, Hx Tuberculosis Neurological Medical History: Denies: Hx Migraine, Hx Seizures Endocrine Medical History: Denies: Hx Diabetes Mellitus Type 1, Hx Diabetes Mellitus Type 2, Hx Hyperthyroidism, Hx Hypothyroidism Renal/ Medical History: Denies: Hx End Stage Renal Disease, Hx Peritoneal Dialysis GI Medical History: Denies: Hx Cirrhosis, Hx Crohn's Disease, Hx Diverticulitis, Hx Gastroesophageal Reflux Disease, Hx Hepatitis, Hx Hiatal Hernia, Hx Ulcerative Colitis Musculoskeletal Medical History: Reports Hx Arthritis - with chronic pain syndrome Skin Medical History: Denies Hx Eczema, Denies Hx Psoriasis Psychiatric Medical History: Denies: Hx Attention Deficit Hyperactivity Disorder, Hx Bipolar Disorder, Hx Dementia, Hx Depression, Hx Personality Disorder, Hx Post Traumatic Stress Disorder, Hx Schizoaffective Disorder Traumatic Medical History: Denies: Hx Gunshot Wound, Hx Pneumothorax, Hx Traumatic Brain Injury Infectious Medical History: Denies: Hx Hepatitis Past Surgical History: Denies: Hx Appendectomy, Hx Cardiac Catheterization, Hx Carotid Endarterectomy, Hx Cholecystectomy, Hx Colostomy, Hx Coronary Artery Bypass Graft, Hx Coronary Stent, Hx Gastric Bypass Surgery, Hx Herniorrhaphy, Hx Ileostomy, Hx Internal Defibrillator, Hx Orthopedic Surgery, Hx Pacemaker, Hx Tonsillectomy, Hx Valve Replacement, Hx Vascular Surgery, Other - Immunizations Hx Pneumococcal Vaccination: 07/02/15 Review of Systems - Review of Systems Notes: My Normal Review Basic REVIEW OF SYSTEMS: CONSTITUTIONAL : Denies fever, chills, or sweats. Denies recent illness. MUSCULOSKELETAL: Neck pain SKIN: Denies rash or skin lesions. HEMATOLOGIC : On blood thinning medication NEUROLOGICAL: Denies sensory or motor loss. ALL OTHER SYSTEMS REVIEWED AND NEGATIVE. Physical Exam - Vital signs Vitals: Temp Pulse Resp BP Pulse Ox 97.9 F 93 17 145/83 H 94 12/23/18 22:34 12/23/18 22:34 12/23/18 22:34 12/23/18 22:34 12/23/18 22:34 - Notes Notes: General Appearance: Well nourished, alert, cooperative, no acute distress, moderate obvious discomfort. Vitals: reviewed, See vital signs table. Head: no swelling or tenderness to the head Eyes: PERRL, EOMI, Conjuctiva clear Neck: Pain at the base of the neck in the midline. No pain to palpation over the paraspinal musculatures. No redness or swelling over the spine itself. Skin: warm, dry, appropriate color, no rash Neuro: speech clear, oriented x 3, normal affect, responds appropriately to questions. Patient has good strength in upper extremities and lower extremities. Good distal sensation in both upper and lower extremities. Course - Re-evaluation Re-evalutation: 12/24/18 02:26 Exact cause of the patient's neck pain is not clear. It is difficult to say that this is musculoskeletal as the patient does not have any pain with range of motion or palpation. He has obvious significant pain even though I cannot reproduce it. It is only midline. There is no pain lateralizing. Denies any weakness or numbness into the upper or lower extremities. The pain is mainly approximately C6-T3. Patient is on blood thinning medications. I think a spinal hematoma is less likely as the patient does not have any lateralizing weakness or neurologic symptoms; however, the patient's presentation really does not match anything else. He does not meet criteria for emergent transfer for MRI as he does not have any weakness or numbness into his extremities and he does not have fever or signs of infection. Still think that he probably does need an MRI more urgently. I informed him that I would prefer that he stay here and get an MRI in the morning. Patient does not have any metal in his body or contraindications to MRI. Patient says that he prefers to go home and come back around 7 AM to have MRI performed. Informed patient to maintain that plan and that we would see him in the morning. I encouraged him return to ER immediately if he starts having any weakness or numbness into extremities, fevers, or has further concerns. Dictation of this chart was performed using voice recognition software; therefore, there may be some unintended grammatical errors. - Vital Signs Vital signs: Temp Pulse Resp BP Pulse Ox 97.9 F 93 17 145/83 H 94 12/23/18 22:34 12/23/18 22:34 12/23/18 22:34 12/23/18 22:34 12/23/18 22:34 Discharge - Discharge Clinical Impression: Neck pain Back pain Qualifiers: Back pain location: thoracic back pain Chronicity: acute Back pain laterality: midline Qualified Code(s): M54.6 - Pain in thoracic spine Condition: Good Disposition: HOME, SELF-CARE Additional Instructions: Please return to the ER at 7am to check in for reevaluation and probable MRI to further evaluate your neck and upper back. Please return to the ER immediately if you develop weakness or numbness in your arms or legs, fevers, or if you feel unwell. Referrals: JOSE PONCE MD [Primary Care Provider] - Follow up as needed
[2018-12-24 02:47] VITALS: BP 129/75
== END 2018-12-24 02:46 | disposition home or self-care (01) ==
LOC: ER 22:27
DX: M54.2 Cervicalgia (principal); M54.6 Pain in thoracic spine; I10 Essential (primary) hypertension; Z79.01 Long term (current) use of anticoagulants
CPT/HCPCS: 72125; 72128; 99283

== ENCOUNTER 2018-12-24 07:53 | Emergency (ER) | payer BC, MEDICARE ==
[2018-12-24] MEDS ORDERED: OXYCODONE-ACETAMINOPHEN 5-325 MG TABLET PO ONE (08:18)
--- NOTE | 2018-12-24 08:23 | ER Document Report ---
ED Neck/Back Problem - General Chief Complaint: Neck and Upper Back Pain Stated Complaint: NECK PAIN Time Seen by Provider: 12/24/18 08:09 Primary Care Provider: JOSE PONCE MD [Primary Care Provider] - Follow up as needed Mode of Arrival: Ambulatory Information source: Patient Notes: Patient is a 68-year-old male who presents to the emergency department with chief complaint of neck pain. Patient was seen here in the emergency department last night and was advised to return at 7 AM for possible MRI. Patient reports pain has been ongoing for approximately 3 days, denies any injury to the area. Patient denies any other symptoms. Patient reports the pain is 5/5 and is located in the cervical spine with radiation down into the thoracic spine to approximately the area of T3. Patient denies any previous history of trauma to this area has not had surgery on this area. Patient does take Eliquis. TRAVEL OUTSIDE OF THE [place] IN LAST 30 DAYS: No - Related Data Allergies/Adverse Reactions: No Known Allergies Allergy (Verified 12/24/18 07:55) Past Medical History - General Information source: Patient - Social History Smoking Status: Never Smoker Frequency of alcohol use: Rare Family History: Reviewed & Not Pertinent Patient has suicidal ideation: No Patient has homicidal ideation: No - Past Medical History Cardiac Medical History: Reports: Hx Hypercholesterolemia, Hx Hypertension Pulmonary Medical History: Denies: Hx Asthma, Hx Bronchitis, Hx COPD, Hx Pneumonia, Hx Intubation, Hx Respiratory Failure, Hx Sleep Apnea, Hx Tuberculosis Neurological Medical History: Denies: Hx Migraine, Hx Seizures Endocrine Medical History: Denies: Hx Diabetes Mellitus Type 1, Hx Diabetes Mellitus Type 2, Hx Hyperthyroidism, Hx Hypothyroidism Renal/ Medical History: Denies: Hx End Stage Renal Disease, Hx Peritoneal Dialysis GI Medical History: Denies: Hx Cirrhosis, Hx Crohn's Disease, Hx Diverticulitis, Hx Gastroesophageal Reflux Disease, Hx Hepatitis, Hx Hiatal Hernia, Hx Ulcerative Colitis Musculoskeletal Medical History: Reports Hx Arthritis - with chronic pain syndrome Skin Medical History: Denies Hx Eczema, Denies Hx Psoriasis Psychiatric Medical History: Denies: Hx Attention Deficit Hyperactivity Disorder, Hx Bipolar Disorder, Hx Dementia, Hx Depression, Hx Personality Disorder, Hx Post Traumatic Stress Disorder, Hx Schizoaffective Disorder Traumatic Medical History: Denies: Hx Gunshot Wound, Hx Pneumothorax, Hx Traumatic Brain Injury Infectious Medical History: Denies: Hx Hepatitis Past Surgical History: Denies: Hx Appendectomy, Hx Cardiac Catheterization, Hx Carotid Endarterectomy, Hx Cholecystectomy, Hx Colostomy, Hx Coronary Artery B ypass Graft, Hx Coronary Stent, Hx Gastric Bypass Surgery, Hx Herniorrhaphy, Hx Ileostomy, Hx Internal Defibrillator, Hx Orthopedic Surgery, Hx Pacemaker, Hx Tonsillectomy, Hx Valve Replacement, Hx Vascular Surgery, Other - Immunizations Hx Pneumococcal Vaccination: 07/02/15 Review of Systems - Review of Systems Constitutional: No symptoms reported EENT: No symptoms reported Cardiovascular: No symptoms reported Respiratory: No symptoms reported Gastrointestinal: No symptoms reported Genitourinary: No symptoms reported Male Genitourinary: No symptoms reported Musculoskeletal: See HPI Skin: No symptoms reported Hematologic/Lymphatic: No symptoms reported Neurological/Psychological: No symptoms reported Physical Exam - Vital signs Vitals: Temp Pulse Resp BP Pulse Ox 97.6 F 120 H 16 135/80 H 98 12/24/18 07:58 12/24/18 07:58 12/24/18 07:58 12/24/18 07:58 12/24/18 07:58 - Notes Notes: PHYSICAL EXAMINATION: GENERAL: Well-appearing, well-nourished and in no acute distress. HEAD: Atraumatic, normocephalic. EYES: Pupils equal round and reactive to light, extraocular movements intact, sclera anicteric, conjunctiva are normal. ENT: Nares patent, oropharynx clear without exudates. Moist mucous membranes. NECK: Normal range of motion, supple without lymphadenopathy LUNGS: Breath sounds clear to auscultation bilaterally and equal. No wheezes rales or rhonchi. HEART: Regular rate and rhythm without murmurs ABDOMEN: Soft, nontender, nondistended abdomen. No guarding, no rebound. No masses appreciated. Musculoskeletal: Normal range of motion, no pitting or edema. No cyanosis. Patient with point tenderness over the cervical and thoracic spine, no step-off or deformity noted, no erythema or ecchymosis noted. Equal strength bilaterally. NEUROLOGICAL: Cranial nerves grossly intact. Normal speech, normal gait. Normal sensory, motor exams. PSYCH: Normal mood, normal affect. SKIN: Warm, Dry, normal turgor, no rashes or lesions noted. 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 I discussed this with attending physician Dr. Dang Martin who agrees that patient should undergo MRI of the cervi elizabeth and thoracic spine. Initial orders were placed for combo MRI of the cervical and thoracic spine however the instructional technology facilitator called and states they would rather do it without contrast initially and they will do contrast if necessary. I did let them know that we are specifically looking for a hematoma. MRI of the cervical and thoracic spine are both negative for any acute findings. This was discussed with the patient who verbalizes understanding. Patient would like to try taking ibuprofen for his pain as he states that has helped in the past. I will give him a dose here in the emergency department. I did encourage close follow-up with his primary care provider, patient reports that he has an appointment with him later this afternoon. Patient encouraged to return to the emergency department for any new or worsening symptoms. - Vital Signs Vital signs: Temp Pulse Resp BP Pulse Ox 97.4 F 101 H 16 154/94 H 97 12/24/18 13:40 12/24/18 13:40 12/24/18 13:40 12/24/18 13:40 12/24/18 13:40 - Laboratory Result Diagrams: 12/24/18 09:15 12/24/18 09:15 Laboratory results interpreted by me: 12/24/18 09:15 Total Protein 9.3 H Discharge - Discharge Clinical Impression: Neck pain Condition: Stable Disposition: HOME, SELF-CARE Additional Instructions: The MRIs that were done today are negative. They did not find any acute abnormalities. My recommendation at this point is to take ibuprofen 600 mg every 6 hours. This will help with not only pain but also inflammation. Please call and schedule an appointment with your primary care provider for follow-up. Let Dr. Ponce know that we did MRIs here in the emergency department today and they were normal, he can pull up the results from his office. Forms: Return to Work Referrals: JOSE PONCE MD [Primary Care Provider] - Follow up as needed
[2018-12-24 09:29] LABS: ABSOLUTE LYMPHOCYTES (AUTO) 1.4 10^3/uL (0.5-4.7); ABSOLUTE MONOCYTES (AUTO) 0.6 10^3/uL (0.1-1.4); ABSOLUTE NEUT (AUTO) 4.7 10^3/uL (1.7-8.2); BASOPHILS % (AUTO) 0.3 % (0-2); EOSINOPHILS % (AUTO) 0.4 % (0-6); HEMATOCRIT 46.1 % (37.9-51.0); HEMOGLOBIN 16.3 g/dL (13.5-17.0); MEAN CORPUSCULAR HEMOGLOBIN 31.2 pg (27.0-33.4); MEAN CORPUSCULAR HGB CONC 35.3 g/dL (32.0-36.0); MEAN CORPUSCULAR VOLUME 88 fl (80-97); PLATELET COUNT 193 10^3/uL (150-450); RED BLOOD COUNT 5.22 10^6/uL (4.35-5.55); RED CELL DISTRIBUTION WIDTH 12.5 % (11.5-14.0); SEGMENTED NEUTROPHILS % (AUTO) 69.3 % (42-78); TOTAL CELLS COUNTED % (AUTO) 100 %; WHITE BLOOD COUNT 6.7 10^3/uL (4.0-10.5)
[2018-12-24 09:49] LABS: ALANINE AMINOTRANSFERASE 25 U/L (21-72); ALBUMIN 4.5 g/dL (3.5-5.0); ALKALINE PHOSPHATASE 66 U/L (38-126); ANION GAP 12 (5-19); ASPARTATE AMINO TRANSFERASE 34 U/L (17-59); BILIRUBIN,DIRECT 0.4 mg/dL (0.0-0.4); BILIRUBIN,TOTAL 1.1 mg/dL (0.2-1.3); BLOOD UREA NITROGEN 16 mg/dL (7-20); CALCIUM 9.8 mg/dL (8.4-10.2); CARBON DIOXIDE 28 mmol/L (22-30); CHLORIDE 100 mmol/L (98-107); GLUCOSE 105 mg/dL (75-110); POTASSIUM 4.1 mmol/L (3.6-5.0); SODIUM 140.1 mmol/L (137-145); TOTAL PROTEIN 9.3 g/dL (6.3-8.2)
[2018-12-24 10:57] LABS: INTERNATIONAL RATION (INR) 1.05; PARTIAL THROMBOPLASTIN TIME 30.1 SEC (23.5-35.8); PROTHROMBIN TIME 14.2 SEC (11.4-15.4)
--- NOTE | 2018-12-24 12:13 | RADIOLOGY REPORT (SQ) ---
EXAM DESCRIPTION: MRI THORACIC SPINE WITHOUT COMPLETED DATE/TIME: 12/24/2018 11:51 am REASON FOR STUDY: Cervical/Thoracic neck pain, no injury COMPARISON: None. TECHNIQUE: Sagittal and Axial imaging includes T1, T2, STIR and gradient echo sequences. LIMITATIONS: Motion. FINDINGS: LOCALIZER: No worrisome findings. ALIGNMENT: Normal. VERTEBRAE: Intact. BONE MARROW: Normal. No marrow replacement or reactive changes. HARDWARE: None in the spine. CORD: Normal in size and signal intensity. SOFT TISSUES: No soft tissue masses. THORACIC DISCS T1-T12: Desiccation multiple levels. No evidence of disc herniation. LOWER CERVICAL: See separate report. UPPER LUMBAR: Incompletely imaged. No significant spinal stenosis or exit foraminal stenosis. OTHER: No other significant finding. IMPRESSION: No acute findings. TECHNICAL DOCUMENTATION: JOB ID: [id number] [employer]- All Rights Reserved Reading location - IP/workstation name: [email or web address]
--- NOTE | 2018-12-24 12:36 | RADIOLOGY REPORT (SQ) ---
EXAM DESCRIPTION: MRI CERVICAL SPINE WITHOUT COMPLETED DATE/TIME: 12/24/2018 11:51 am REASON FOR STUDY: Cervical/Thoracic neck pain, no injury COMPARISON: None. TECHNIQUE: Sagittal and Axial imaging includes T1, T2, STIR and gradient echo sequences. LIMITATIONS: Motion. FINDINGS: ALIGNMENT: Reversal of lordotic curve level of C3-4. Grade 1 anterolisthesis C4 relative to C 3, C5 relative to C 4, C6 relative to C5, C7 relative to C6. VERTEBRAE: Intact. BONE MARROW: Reactive edema C6-7 endplates. DISCS: Desiccation multiple levels. HARDWARE: None in the spine. CORD AND BASE OF BRAIN: Normal in size and signal intensity. SOFT TISSUES: No soft tissue masses. C1-C2: No significant spinal stenosis. C2-C3: Mild -moderate spinal stenosis due to disc osteophyte complex and uncovertebral arthropathy. Disc contacts the cord. No cord compression. C3-C4: Mild -moderate spinal stenosis. Moderate neural foraminal narrowing bilaterally. C4-C5: Mild -moderate spinal stenosis. Moderate right and severe left neural foraminal narrowing. C5-C6: Mild spinal stenosis. Severe neural foraminal narrowing bilaterally. C6-C7: Mild spinal stenosis. Severe left and moderate right neural foraminal narrowing. C7-T1: No significant stenosis. UPPER THORACIC: See separate report of the same date. OTHER: No other significant finding. IMPRESSION: Spinal stenosis at multiple levels, more advanced C2-3 through C4-5. No cord compressio n. TECHNICAL DOCUMENTATION: JOB ID: [id number] [email or web address]- All Rights Reserved Reading location - IP/workstation name: [email or web address]
[2018-12-24] MEDS ORDERED: IBUPROFEN 600 MG TABLET PO ONE (13:36)
[2018-12-24 13:41] VITALS: BP 154/94
== END 2018-12-24 14:00 | disposition home or self-care (01) ==
LOC: ER 07:53
DX: M54.2 Cervicalgia (principal); M54.6 Pain in thoracic spine; I10 Essential (primary) hypertension; Z79.01 Long term (current) use of anticoagulants
CPT/HCPCS: 36415; 72141; 72146; 80053; 85025; 85610; 85730; 99284